=== PATIENT | female | born 1960 | race Caucasian/White ===

== ENCOUNTER 2017-02-18 06:35 | Day surgery (SDC) | payer OTHER ==
[2017-02-17 12:09] VITALS: BMI 34.7
[2017-02-18] MEDS ORDERED: LIDOCAINE HCL/PF 2% SDV 5ML VIAL ONE (07:26)
[2017-02-18] MEDS ORDERED: PROPOFOL 20 ML ONE ×5 (07:26)
[2017-02-18] MEDS ORDERED: SUCCINYLCHOLINE CHLORIDE 200 MG/10 ML VIAL ONE (07:26)
[2017-02-18 07:50] VITALS: TEMP 97.5
[2017-02-18 08:40] VITALS: BP 123/72; PULSE 62
== END 2017-02-18 08:40 | disposition home or self-care (01) ==
LOC: JASU-ENDO 06:35
PROVIDERS: ATTEND Internal Medicine Gastroenterology
PROC: 0DJD8ZZ Inspection of Lower Intestinal Tract, Via Natural or Artificial Opening Endoscopic (ICD-10-PCS; principal; 2017-02-18 07:30)
DX: Z12.11 Encounter for screening for malignant neoplasm of colon (principal); K57.30 Diverticulosis of large intestine without perforation or abscess without bleeding

== ENCOUNTER 2017-06-21 12:00 | Emergency (ER) | payer OTHER ==
[2017-06-21 12:04] VITALS: TEMP 100; BMI 33.5
[2017-06-21] MEDS ORDERED: SODIUM CHLORIDE 0.9% 1000 ML INFUS.BAG IV ONE (12:43)
[2017-06-21] MEDS ORDERED: ACETAMINOPHEN 500 MG TABLET (FP) PO ONE (12:44)
--- NOTE | 2017-06-21 12:49 | PDOC ---
History of Present Illness - General Chief Complaint: Pain, Acute Stated Complaint: BACK PAIN Time Seen by Provider: 06/21/17 12:29 - History of Present Illness Initial Comments: 06/21/17 12:44 Patient is a 56 y.o. female with a PMH of HIV and nephrolithiasis who presents c /o 2 day h/o of suprapubic pain, increased urgency and frequency. Patient endorses fever and chills and denies nausea, vomiting, constipation or diarrhea. Surgical: Total Hysterectomy Social: denies cigarettes, denies alcohol, denies recreational drugs NKDA PMD: Alejandro Apple Past History - Past Medical History Allergies/Adverse Reactions: Allergies Allergy/AdvReac Type Severity Reaction Status Date / Time No Known Allergies Allergy Verified 06/21/17 12:03 Home Medications: Ambulatory Orders Abacavir/Dolutegravir/Lamivudi [Triumeq Tablet] 1 each PO DAILY #30 tablet 06/05 Cholecalciferol (Vitamin D3) [Vitamin D3 -] 1,000 unit PO DAILY #30 tab Sulfamethoxazole/Trimethoprim [Bactrim Ds Tablet] 1 each PO BID #14 tablet 06/21 Anemia: No Asthma: No Cancer: No Cardiac Disorders: No CVA: No COPD: No CHF: No Dementia: No Diabetes: No GI Disorders: No Disorders: Yes (kidney stones 1996) HTN: No Hypercholesterolemia: No Kidney Stones: Yes Liver Disease: No Seizures: No Thyroid Disease: No - Surgical History Abdominal Surgery: Yes Appendectomy: No Cardiac Surgery: No Cholecystectomy: No Lung Surgery: No Neurologic Surgery: No Orthopedic Surgery: Yes (ARTHROSCOPY) - Immunization History Immunization Up to Date: Yes - Suicide/Smoking/Psychosocial Hx Smoking History: Never smoked Have you smoked in the past 12 months: No Cigars Per Day: 0 Hx Alcohol Use: No Drug/Substance Use Hx: No Substance Use Type: None Hx Substance Use Treatment: No Review of Systems - Review of Systems Constitutional: Yes: Chills, Fever HEENTM: No: Blurred Vision, Double Vision Respiratory: No: Orthopnea Cardiac (ROS): No: Chest Pain : Yes: Frequency, Urgency. No: Burning, Dysuria All Other Systems: Reviewed and Negative *Physical Exam - Vital Signs Last Vital Signs Temp Pulse Resp BP Pulse Ox 100.0 F H 83 20 135/81 99 06/21/17 12:01 06/21/17 12:01 06/21/17 12:01 06/21/17 12:01 06/21/17 12:01 - Physical Exam General Appearance: Yes: Nourished, Appropriately Dressed Respiratory/Chest: positive: Lungs Clear Cardiovascular: positive: S1, S2 Gastrointestinal/Abdominal: positive: Soft Musculoskeletal: negative: CVA Tenderness (R), CVA Tenderness (L) Extremity: positive: Normal Capillary Refill, Normal Inspection Integumentary: positive: Normal Color, Dry ED Treatment Course - LABORATORY CBC & Chemistry Diagram: 06/21/17 13:05 06/21/17 13:05 Medical Decision Making - Medical Decision Making 06/21/17 12:51 Patient is a 56 y.o. female who presents c/o 2 day h/o lower abdominal/ suprapubic pain. On PE patient is febrile (100 degrees F) and has significant TTP. Initial DDx is for nephrolithiasis vs. UTI. PLAN: 1. Spiral CT 2. UA 3. CBC, CMP 4. 1 L IV NS 06/21/17 16:[address] showed no obstructing renal stone, however did note stone in the kidney as well as a renal cyst. Patient's UA (leukocyte esterase) was pending, however as patient was c/o increased frequency and urgency, patient was given an outpatient prescription for Bactrim and discharged with return precautions and referral to urology. *DC/Admit/Observation/Transfer Diagnosis at time of Disposition: Nephrolithiasis - Discharge Dispostion Disposition: HOME Condition at time of disposition: Good Admit: No - Prescriptions Prescriptions: Sulfamethoxazole/Trimethoprim [Bactrim Ds Tablet] 1 each PO BID #14 tablet - Referrals Referrals: STAFF,NOT ON [Primary Care Provider] - Brock Snyder MD [Staff Physician] - - Patient Instructions Printed Discharge Instructions: DI for Kidney Stones, Kidney Stones ( Alternative Therapy) Additional Instructions: Please follow up with a urologist, Dr. Tucker, for treatment of your kidney stone. Please return to the Emergency Department for any worsening or concerning symptoms
[2017-06-21] MEDS ORDERED: ACETAMINOPHEN 325 MG TABLET (FP) ONE (12:53)
[2017-06-21] MEDS ORDERED: ACETAMINOPHEN 325 MG TABLET (FP) PO ONE (12:53)
[2017-06-21 13:17] LABS: URINE APPEARANCE SLCLOUDY; URINE BILIRUBIN NEGATIVE (NEGATIVE); URINE BLOOD NEGATIVE (NEGATIVE); URINE COLOR YELLOW; URINE GLUCOSE (UA) NEGATIVE (NEGATIVE); URINE KETONE NEGATIVE (NEGATIVE); URINE NITRITE NEGATIVE (NEGATIVE)
--- NOTE | 2017-06-21 13:17 | PDOC ---
Attending Attestation - Resident Resident Name: Claude Gallegosica - ED Attending Attestation I have performed the following: I have examined & evaluated the patient, The case was reviewed & discussed with the resident, I agree w/resident's findings & plan, Exceptions are as noted - HPI HPI: 06/21/17 13:14 56 yo F with h/o hiv, renal colic here with c/o suprapubic pain. started yesterday. no n/v no mod factors. mild fever chills. no change to stool. has had cough, nonproductive. was urinating felt a stone pass, heard a clunck. 06/21/17 13:16 - Physicial Exam PE: 06/21/17 13:15 awake alert lungs clear heart rrr no mrg. abd soft mild suprapubic ttp. no rebound no guarding. no cva tenderness. ext wwp. no edema. - Medical Decision Making 06/21/17 13:17 differential: uti pyelo renal colic, pna.
[2017-06-21 13:20] LABS: URINE PROTEIN 1+ (NEGATIVE)
[2017-06-21 13:37] LABS: BASOPHIL 0.8 % (0-2.0); EOSINOPHIL 0.9 % (0-4.5); MCH 27.6 pg (25.7-33.7); MCHC 33.2 g/dl (32.0-36.0); MEAN CELL VOLUME 83.3 fl (80-96); MEAN PLT VOLUME 11.1 fl (7.5-11.1); NEUTROPHILS 58.9 % (42.8-82.8); PLATELET COUNT 57 K/MM3 (134-434); RDW 14.8 % (11.6-15.6); WHITE BLOOD COUNT 8.1 K/mm3 (4.0-10.0)
[2017-06-21 13:40] LABS: ALBUMIN 3.8 g/dl (3.4-5.0); ALK PHOS 112 U/L (45-117); ANION GAP 6 (8-16); BILIRUBIN,TOTAL 0.4 mg/dL (0.2-1.0); CALCIUM 8.6 mg/dL (8.5-10.1); CO2 28 mmol/L (21-32); CREATININE 0.6 mg/dL (0.55-1.02); GLUCOSE,RANDOM 89 mg/dL (74-106); SGPT/ALT 25 U/L (12-78); TOT PROT 7.9 g/dl (6.4-8.2)
[2017-06-21 13:53] LABS: URINE MUCUS RARE; URINE RBC 4 /hpf (0-3); URINE WBC 3 /hpf (3-5)
[2017-06-21 14:01] LABS: SGOT/AST 20 U/L (15-37)
[2017-06-21 15:49] VITALS: BP 142/82; PULSE 70
[2017-06-21 18:06] LABS: URINE LEUK ESTERASE Negative (NEGATIVE)
== END 2017-06-21 15:52 | disposition home or self-care (01) ==
LOC: JER 12:00
DX: N20.0 Calculus of kidney (principal); Z87.442 Personal history of urinary calculi
CPT/HCPCS: 36415; 71020-TC; 74176; 80053; 81003; 81015; 84703; 85025; 87804; 99284-25

== ENCOUNTER 2018-05-16 10:45 | Emergency (ER) | payer OTHER ==
[2018-05-16 10:56] VITALS: TEMP 99.5; BMI 34.7
[2018-05-16] MEDS ORDERED: ACETAMINOPHEN 1000 MG/100 ML VIAL (NON FORMULARY) IVPB ONE (11:43)
--- NOTE | 2018-05-16 11:45 | PDOC ---
*Physical Exam - Vital Signs Last Vital Signs Temp Pulse Resp BP Pulse Ox 99.5 F 82 18 125/77 98 05/16/18 10:51 05/16/18 10:51 05/16/18 10:51 05/16/18 10:51 05/16/18 10:51 Medical Decision Making - Medical Decision Making 05/16/18 11:44 Case discussed with physician business office assistant Ashley. Head examination the patient myself. This is a well-controlled HIV patient with a dog bite. Patient is on Augmentin and has surrounding erythema. I agree with the plan to draw blood work and labs. Low threshold to admit the patient given HIV status and cellulitis. Initiate with IV Unasyn. *DC/Admit/Observation/Transfer - Referrals Referrals: Jazzy Mata MD [Primary Care Provider] - - Patient Instructions - Post Discharge Activity
--- NOTE | 2018-05-16 11:48 | PDOC ---
History of Present Illness - General Chief Complaint: Bite Stated Complaint: DOG BITE Time Seen by Provider: 05/16/18 11:30 History Source: Patient Exam Limitations: No Limitations - History of Present Illness Initial Comments: CHIEF COMPLAINT: 57 y/o afebrile female with PMH HIV+ (undetectable - compliant with antiretrovirals), HLD, chronic knee pain c/o redness, swelling and pain to right foot since dog bite 2 days ago. HISTORY OF PRESENT ILLNESS: The patient states she tried to stop her own 2 dogs from fighting when one of them bit her on the back of her right ankle. This happened 2 days ago. She immediately cleaned the the wounds. She saw her doctor yesterday because she developed a fever. She was started on augmentin. The patient states the foot is no better today, is swollen, red and painful. Her dogs are UTD on all immunizations and rabies. Vital signs on arrival are notable for temp of 99.5 REVIEW OF SYSTEMS: GENERAL/CONSTITUTIONAL: +fever. No weakness. No weight change. HEAD, EYES, EARS, NOSE AND THROAT: No change in vision. No ear pain or discharge. No sore throat. MUSCULOSKELETAL: +redness, swelling and warmth to right foot. No neck or back pain. SKIN: +4 dog bites to right ankle NEUROLOGIC: No headache, vertigo, loss of consciousness, or loss of sensation. PHYSICAL EXAM: VITAL_SIGNS: within normal limits GENERAL_APPEARANCE: alert, cooperative, no obvious discomfort. MENTAL_STATUS: speech clear, oriented X 3, responds appropriately to questions. NEURO: motor intact and sensory intact in injured extremity. EXTREMITIES: good pulse in injured extremity. significant edema, erythema and warmth to right foot ankle and 1/3 way up right LE. No streaking. SKIN: 4 bite wounds on posterior right ankle that have scabbed over. Past History - Past Medical History Allergies/Adverse Reactions: Allergies Allergy/AdvReac Type Severity Reaction Status Date / Time No Known Allergies Allergy Verified 05/16/18 10:56 Home Medications: Ambulatory Orders Abacavir/Dolutegravir/Lamivudi [Triumeq Tablet] 1 each PO DAILY #30 tablet 05/14 Amox-Tr/K Cl [Augmentin - 875Mg Tablet] 1 tab PO BID #20 tablet 05/15/18 Anemia: No Asthma: No Cancer: No Cardiac Disorders: No CVA: No COPD: No CHF: No Dementia: No Diabetes: No GI Disorders: No Disorders: Yes (kidney stones 1996) HTN: No Hypercholesterolemia: No Kidney Stones: Yes Liver Disease: No Seizures: No Thyroid Disease: No - Surgical History Abdominal Surgery: Yes Appendectomy: No Cardiac Surgery: No Cholecystectomy: No Lung Surgery: No Neurologic Surgery: No Orthopedic Surgery: Yes (ARTHROSCOPY) - Immunization History Immunization Up to Date: Yes - Suicide/Smoking/Psychosocial Hx Smoking History: Never smoked Have you smoked in the past 12 months: No Cigars Per Day: 0 Hx Alcohol Use: No Drug/Substance Use Hx: No Substance Use Type: None Hx Substance Use Treatment: No *Physical Exam - Vital Signs Last Vital Signs Temp Pulse Resp BP Pulse Ox 99.5 F 82 18 125/77 98 05/16/18 10:51 05/16/18 10:51 05/16/18 10:51 05/16/18 10:51 05/16/18 10:51 ED Treatment Course - LABORATORY CBC & Chemistry Diagram: 05/16/18 11:40 05/16/18 11:40 Medical Decision Making - Medical Decision Making A/P: 57 y/o female with right foot infection secondary to bites from her own dog. She is immunocompromised with HIV. Plan is as follows: 1. Labs 2. Blood culture 3. IV unasyn Labs ok. No WBC count No left shift Lactic acid normal Will discharge to home. Instructed her to continue taking Augmentin as prescribed and call Dr. Mata on Friday. Pt instructed to return to the ER in 48 hours or sooner if redness worsens or if she continues to get fevers or develops fever. The patient verbalizes understanding of all instructions, has no further questions and is awaiting discharge. *DC/Admit/Observation/Transfer Diagnosis at time of Disposition: Foot infection Dog bite Qualifiers: Encounter type: initial encounter Qualified Code(s): W54.0XXA - Bitten by dog, initial encounter - Discharge Dispostion Disposition: HOME Condition at time of disposition: Good - Referrals Referrals: Jazzy Mata MD [Primary Care Provider] - (Call Friday) - Patient Instructions Printed Discharge Instructions: DI for Animal Bites Additional Instructions: Discharge Instructions: -You were given a dose of IV Unasyn -Continue to take the antibiotics that your doctor prescribed -In 48 hours if the infection has worsened, or if you have fevers please return to the ER to be admitted for IV antibiotics - Post Discharge Activity
[2018-05-16] MEDS ORDERED: ACETAMINOPHEN INJECTION 100 ML IVPB ONE (11:50)
[2018-05-16 12:13] LABS: BASO % 0.9 % (0-2.0); EOS % 0.3 % (0-4.5); HEMATOCRIT 40.9 % (32.4-45.2); HEMOGLOBIN 13.5 GM/dL (10.7-15.3); LYMPH % 14.5 % (8-40); MCH 29.1 pg (25.7-33.7); MEAN PLT VOLUME 10.7 fl (7.5-11.1); MONO % 6.4 % (3.8-10.2); NEUT % 77.9 % (42.8-82.8); PLATELET COUNT 156 K/MM3 (134-434); RBC 4.65 M/mm3 (3.60-5.2); WHITE BLOOD COUNT 9.9 K/mm3 (4.0-10.0)
[2018-05-16] MEDS ORDERED: AMPICILLIN NA/SULBACTAM NA 1.5 GM in SODIUM CHLORIDE 100 ML IVPB ONE (12:16)
[2018-05-16 12:51] LABS: ALK PHOS 99 U/L (45-117); ANION GAP 8 MMOL/L (8-16); BILIRUBIN,TOTAL 0.8 mg/dL (0.2-1.0); BLOOD UREA NITROGEN 15 mg/dL (7-18); CALCIUM 8.7 mg/dL (8.5-10.1); CHLORIDE 102 mmol/L (98-107); CO2 29 mmol/L (21-32); CREATININE 0.7 mg/dL (0.55-1.3); GLUCOSE,RANDOM 104 mg/dL (74-106); POTASSIUM 3.9 mmol/L (3.5-5.1); SGOT/AST 18 U/L (15-37); SGPT/ALT 24 U/L (13-61); SODIUM 139 mmol/L (136-145)
[2018-05-16 14:10] VITALS: BP 132/78; PULSE 68
== END 2018-05-16 14:14 | disposition home or self-care (01) ==
LOC: JER 10:45
PROC: 3E03329 Introduction of Other Anti-infective into Peripheral Vein, Percutaneous Approach (ICD-10-PCS; principal; 2018-05-16)
PROC: 3E033NZ Introduction of Analgesics, Hypnotics, Sedatives into Peripheral Vein, Percutaneous Approach (ICD-10-PCS; 2018-05-16)
DX: S91.051A Open bite, right ankle, initial encounter (principal); L08.9 Local infection of the skin and subcutaneous tissue, unspecified; W54.0XXA Bitten by dog, initial encounter; Y93.K9 Activity, other involving animal care; Y92.038 Other place in apartment as the place of occurrence of the external cause; Y99.8 Other external cause status; Z21 Asymptomatic human immunodeficiency virus [HIV] infection status; E78.5 Hyperlipidemia, unspecified; M25.569 Pain in unspecified knee; G89.29 Other chronic pain
CPT/HCPCS: 36415; 80053; 83605; 85025; 87040; 99282-25; J0131

== ENCOUNTER 2018-10-16 11:11 | Emergency (ER) | payer OTHER ==
[2018-10-16 11:23] VITALS: BP 144/85; PULSE 66; TEMP 97.6; BMI 33.2
--- NOTE | 2018-10-16 12:25 | PDOC ---
Attending Attestation - HPI HPI: 10/16/18 14:19 The patient is a 58 year old female, with a significant past medical history of HIV (complaint with medications) who presents to the emergency department from [facility] with 1 day of left upper gum pain (above teeth 10-11) and entire left sided weakness. The patient notes her weakness started yesterday but has progressively gotten worse. The patient notes her gum pain does not prevent her from eating or chewing. The patient denies slurred speech. The patient denies chest pain, shortness of breath, headache and dizziness. The patient denies fever, chills, nausea, vomit, diarrhea and constipation. The patient denies dysuria, frequency, urgency and hematuria. Allergies: NKA Past surgical history: hysterectomy and tubal ligation (2002 due to fibroids), right knee meniscus repair and right ankle repair(2015), left knee meniscus repair (2017) Social history: No reported Family History: Father has DMII PCP: Dr. Mata <Dionte Hankins - Last Filed: 10/16/18 14:19> - Resident Resident Name: Rey Pollack - ED Attending Attestation I have performed the following: I have examined & evaluated the patient, The case was reviewed & discussed with the resident, I agree w/resident's findings & plan, Exceptions are as noted - Physicial Exam PE: 10/16/18 16:56 awake alert NAD ulceration left upper gum, chancre. no exudate. no fluctuance. lungs clear bilaterally heart rrr no mrg abd soft nt nd. ext wwp no edema. no calf tenderness. nuero speech clear CN intact. sensation intact throughout. upper ext 5/5 bilaterally. left left mild 4+ on hip flexion compared to left . no midline spinal tenderness. abd soft nt nd. 10/16/18 16:57 - Medical Decision Making 10/16/18 16:58 58 yo F h/o hiv, here wiith c/o left sided weakness for 2 days. was seen at [facility] sent here. no neck or back pain. no n/v no fever. no trauma. on exam very minimal appreciated left hip weakness, sensation intact otherwise unremarkable exam. no midline spinal tenderness. plan labs ct . ct unremarkable. d/w dr henderson. recomme d outpt fu. will see in office. labs normal. also given fu for ENT for chancre in mouth. <Silke Phan - Last Filed: 10/16/18 17:00> Attestations - Attestations 10/16/18 14:20 Documentation prepared by Dionte Hankins, acting as medical clerical assistant for Silke Phan MD, <Dionte Hankins - Last Filed: 10/16/18 14:19>
--- NOTE | 2018-10-16 12:28 | PDOC ---
History of Present Illness - General Chief Complaint: Weakness Stated Complaint: LT SIDED WEAKNESS Time Seen by Provider: 10/16/18 11:55 - History of Present Illness Initial Comments: 10/16/18 12:18 58 yr old woman with HIV and thrombocytopenia presents to the Ed for 1 day of left sided weakness from her head to her feet and left gum pain since yesterday. The weakness started yesterday and she feels that it has been getting worse but is not preventing her ADLs. She is able to weightbare and grasp things with her left hand without difficulty. Pain her gum is localized to her left upper gum(above teeth 10-11) starting yesterday, she has been able to chew and swallow but the pain is still present and she feels that it is progressively getting worse. Tylenol resolved the pain. was recently evaluated at [facility] for "anal lesions" that she will be getting treatment denies slurred speech, fevers, chest pain, palpitations, poor appetite, dairrhea , constipation, dysuria, bleeding gums, fevers, cough, weight loss Surghx: hysterectomy and tubal ligation in 2002 due to fibroids, 2016 right knee meniscus repair and right ankle repair, 2017 left knee meniscus repair Pmhx: dx'd with HIV in 1996, complaint with medications, thinks it was contracted through a partner. Soc hx: denies smoking, ETOH and illicit drug use Fmhx: father with DMII Past History - Travel Traveled outside of the country in the last 30 days: No Close contact w/someone who was outside of country & ill: No - Past Medical History Allergies/Adverse Reactions: Allergies Allergy/AdvReac Type Severity Reaction Status Date / Time No Known Allergies Allergy Verified 10/16/18 11:20 Home Medications: Ambulatory Orders Abacavir/Dolutegravir/Lamivudi [Triumeq 600-50-300 mg Tablet] 1 each PO DAILY # 30 tablet 08/12/18 Anemia: No Asthma: No Cancer: No Cardiac Disorders: No CVA: No COPD: No CHF: No Dementia: No Diabetes: No GI Disorders: No Disorders: Yes (kidney stones 1996) HTN: No Hypercholesterolemia: No HIV: Yes (1995) Kidney Stones: Yes Liver Disease: No Seizures: No Thyroid Disease: No - Surgical History Abdominal Surgery: Yes Appendectomy: No Cardiac Surgery: No Cholecystectomy: No Lung Surgery: No Neurologic Surgery: No Orthopedic Surgery: Yes (ARTHROSCOPY) - Immunization History Immunization Up to Date: Yes - Suicide/Smoking/Psychosocial Hx Smoking History: Never smoked Have you smoked in the past 12 months: No Cigars Per Day: 0 Hx Alcohol Use: No Drug/Substance Use Hx: No Substance Use Type: None Hx Substance Use Treatment: No Review of Systems - Review of Systems Able to Perform ROS?: Yes Is the patient limited Macedonian proficient: No Constitutional: No: Fever, Loss of Appetite, Unintentional Wgt. Loss HEENTM: Yes: Mouth Pain. No: Eye Pain, Blurred Vision, Double Vision, Nose Congestion, Nose Bleeding, Throat Pain, Difficulty Swallowing, Mouth Swelling Respiratory: No: Cough, Shortness of Breath, SOB with Exertion, Productive cough , Hemoptysis Cardiac (ROS): No: Chest Pain, Edema, Lightheadedness, Palpitations ABD/GI: No: Abdominal Distended, Constipated, Diarrhea, Difficulty Swallowing, Nausea, Rectal Bleeding, Vomiting, Tarry Stools : No: Dysuria, Frequency, Flank Pain, Hematuria, Urgency Musculoskeletal: Yes: Muscle Weakness. No: Back Pain, Joint Pain, Joint Swelling, Neck Pain, Joint Stiffness Integumentary: No: Bruising, Erythema, Lesions, Pruritus, Rash, Sweating Neurological: Yes: Numbness, Tremors (right index finger for a few seconds in the ED, unwitnessed), Weakness. No: Headache, Paresthesia, Tingling, Unsteady Gait, Ataxia, Dizziness Endocrine: No: Increased Hunger, Increased Thirst, Unexplained Weight Loss Hematologic/Lymphatic: No: Easy Bleeding, Easy Bruising *Physical Exam - Vital Signs Last Vital Signs Temp Pulse Resp BP Pulse Ox 97.6 F 66 16 144/85 99 10/16/18 11:20 10/16/18 11:20 10/16/18 11:20 10/16/18 11:20 10/16/18 11:20 - Physical Exam General Appearance: Yes: Appropriately Dressed, Apparent Distress HEENT: positive: EOMI, SILVIANO, Symmetrical, Pharynx Normal, Other (left upper gum with 2-3 white plaque 0.5cm in size, erythema without discharge, no underlying fluctuance). negative: Pale Conjunctivae, Photophobia, Pharyngeal Erythema, Tonsillar Exudate, Tonsillar Erythema, Nasal Congestion, Rhinorrhea, Sinus Tenderness Neck: positive: Trachea midline, Normal Thyroid, Supple. negative: Decreased range of motion, Tender midline, Thyromegaly Respiratory/Chest: positive: Lungs Clear, Normal Breath Sounds Cardiovascular: positive: Regular Rhythm, Regular Rate, S1, S2. negative: Murmur Vascular Pulses: Dorsalis-Pedis (R): 2+, Doralis-Pedis (L): 2+ Gastrointestinal/Abdominal: positive: Normal Bowel Sounds, Flat. negative: Tender, Mass Musculoskeletal: positive: Other (no spinal tenderness, no paravertebral tenderness). negative: CVA Tenderness, Muscle Spasm Extremity: positive: Normal Range of Motion. negative: Swelling, Calf Tenderness (b/l) Integumentary: positive: Dry, Warm. negative: Jaundice, Petechiae, Rash Neurologic: positive: baller tender II-XII NML intact, Fully Oriented, Alert, Motor Strength 5/5 (b/l: shoulder/elbow/wrist extension/flexion, handgrip. hip/knee/ ankle extension/flexion) Deep Tendon Reflexes: Knee (L): 2+, Knee (R): 2+, Bicep (L): 2+, Bicep (R): 2+ Moderate Sedation - Procedure Monitoring Vital Signs: Procedure Monitoring Vital Signs Temperature 97.6 F 10/16/18 11:20 Pulse Rate 66 10/16/18 11:20 Respiratory Rate 16 10/16/18 11:20 Blood Pressure 144/85 10/16/18 11:20 O2 Sat by Pulse Oximetry (%) 99 10/16/18 11:20 ED Treatment Course - LABORATORY CBC & Chemistry Diagram: 10/16/18 12:37 10/16/18 12:37 Medical Decision Making - Medical Decision Making 10/16/18 12:39 58 yr old woman complaint with HIV presents with left sided weakness and left gum pain. left gum pain likely from thrush-like lesions and erythema at the gums, likely oral infection to investigate the weakness, will order head ct to r/o acute CVA, masses visible with noncon imaging given her immunocompromised state. check U/A, chest xray, CBC and CMP for any electrolyte imbalances, or signs of infection that may be causing her symptoms 10/16/18 12:58 Chest xray on my read without any infiltrate 10/16/18 13:[address] without acute intracranial pathology 10/16/18 13:56 labs without leucocytosis, anemia, or electrolyte abnormalities u/a is leuk and nitr neg without signs of UTI. 10/16/18 15:17 discussed with neurology, Dr. Hernandez, reviewed labs/imaging and physical exam findings. given negative head ct and normal labs with pt being able to complete ADLs, pt can follow-up as outpatient next week with instructions to return to the hospital sooner if symptoms worsen. updated [employer] Juan Carlos at [facility] who is pt's primary care provider regarding plan , she will notify Dr. Mata and follow-up with patient next week for post- hospital evaluation. *DC/Admit/Observation/Transfer Diagnosis at time of Disposition: Weakness - Discharge Dispostion Disposition: HOME Condition at time of disposition: Stable Decision to Admit order: No - Referrals Referrals: Jazzy Mata MD [Primary Care Provider] - Timoteo Hernandez MD [Staff Physician] - Varghese Cheney MD [Staff Physician] - - Patient Instructions Additional Instructions: You were evaluated for left sided weakness with lab work and a head CT. Labs were all within normal and the head CT did not show any acute bleeding or mass. Contact information for a neurologist, Dr. Hernandez, has been provided for you. Please call to make an appointment as soon as possible for further evaluation. Contact information for an ENT physician, Dr. Cheney, has been provided for you to further evaluate your gum pain. Please call to make an appointment as soon as possible. ASA Rangel at [facility] is aware of your evaluation and plan in the ED, please follow-up with her next week for follow-up. If your left sided weakness gets worse or you develop any new symptoms including chest pain, slurred speech, bleeding gums or any new symptoms please return to the hospital. - Post Discharge Activity
[2018-10-16 13:00] LABS: BASO % 1.2 % (0-2.0); EOS % 1.5 % (0-4.5); HEMATOCRIT 39.2 % (32.4-45.2); HEMOGLOBIN 13.6 GM/dL (10.7-15.3); LYMPH % 35.1 % (8-40); MCH 30.5 pg (25.7-33.7); MCHC 34.6 g/dl (32.0-36.0); MEAN CELL VOLUME 88.2 fl (80-96); MEAN PLT VOLUME 10.5 fl (7.5-11.1); MONO % 8.1 % (3.8-10.2); NEUT % 54.1 % (42.8-82.8); PLATELET COUNT 157 K/MM3 (134-434); RBC 4.44 M/mm3 (3.60-5.2); WHITE BLOOD COUNT 5.1 K/mm3 (4.0-10.0)
[2018-10-16 13:21] LABS: ALK PHOS 102 U/L (45-117); ANION GAP 7 MMOL/L (8-16); BILIRUBIN,TOTAL 0.4 mg/dL (0.2-1); BLOOD UREA NITROGEN 17 mg/dL (7-18); CALCIUM 8.6 mg/dL (8.5-10.1); CHLORIDE 108 mmol/L (98-107); CO2 26 mmol/L (21-32); CREATININE 0.6 mg/dL (0.55-1.3); GLUCOSE,RANDOM 90 mg/dL (74-106); POTASSIUM 3.8 mmol/L (3.5-5.1); SGOT/AST 21 U/L (15-37); SGPT/ALT 29 U/L (13-61); SODIUM 141 mmol/L (136-145); TOT PROT 7.3 g/dl (6.4-8.2)
[2018-10-16 13:48] LABS: URINE APPEARANCE CLEAR; URINE BILIRUBIN NEGATIVE (<2.0 mg/dL); URINE COLOR LTYELLOW; URINE GLUCOSE (UA) NEGATIVE (NEGATIVE); URINE KETONE 1+ (NEGATIVE); URINE LEUK ESTERASE NEGATIVE (NEGATIVE); URINE NITRITE NEGATIVE (NEGATIVE); URINE PROTEIN 1+ (NEGATIVE); URINE UROBILINOGEN NEGATIVE mg/dL (0.2-1.0)
[2018-10-16 13:51] LABS: EPI CELLS RARE /HPF (FEW); URINE MUCUS RARE
[2018-10-16] MEDS ORDERED: ACETAMINOPHEN 325 MG TABLET (FP) PO ONE (15:26)
[2018-10-16] MEDS ORDERED: ACETAMINOPHEN 325 MG TABLET (FP) ONE (15:31)
== END 2018-10-16 15:48 | disposition home or self-care (01) ==
LOC: JER 11:11
DX: R53.1 Weakness (principal); D69.6 Thrombocytopenia, unspecified; Z21 Asymptomatic human immunodeficiency virus [HIV] infection status; A69.0 Necrotizing ulcerative stomatitis
CPT/HCPCS: 36415; 70450-TC; 71045-TC-FY; 80053; 81003; 81015; 85025; 99285-25

== ENCOUNTER 2025-01-29 20:06 | Emergency (ER) | payer OTHER ==
[2025-01-29 20:15] VITALS: RESP 18; BMI 34.2
[2025-01-29] MEDS ORDERED: diphenhydrAMINE HCL 25 MG CAPSULE (FP) PO ONE (21:33)
[2025-01-29] MEDS ORDERED: DALBAVANCIN HCL 500 MG VIAL (RESTRICTED TO ID ONLY) IVPB ONE (21:36)
[2025-01-29] MEDS: diphenhydrAMINE HCL 25 MG CAPSULE (FP) PO ONE (21:42)
[2025-01-29] MEDS: DALBAVANCIN HCL 1,500 MG in DEXTROSE 5%-WATER - 500 ML IVPB ONE (21:53)
[2025-01-29 23:04] VITALS: BP 128/74; PULSE 72; TEMP 98.5
== END 2025-01-29 23:04 | disposition home or self-care (01) ==
LOC: JER 20:06
DX: S60.361A Insect bite (nonvenomous) of right thumb, initial encounter (principal); W57.XXXA Bitten or stung by nonvenomous insect and other nonvenomous arthropods, initial encounter
CPT/HCPCS: 99284-25; J0875